=== PATIENT | male | born 1945 | race Caucasian/White ===

== ENCOUNTER 2020-10-14 00:44 | Observation (INO) | payer MEDICARE, OTHER ==
[2020-10-14 02:19] LABS: Troponin I Less than 0.010 ng/mL (< 0.028)
--- NOTE | 2020-10-14 02:25 | PDOC.BPN ---
- Brief Progress Note [id number] HP dictated
[2020-10-14] MEDS ORDERED: Azithromycin 500 MG in Sodium Chloride 0.9% 250 ML 250 ML IVPB SCH (03:00)
[2020-10-14] MEDS ORDERED: Azithromycin 500 MG VIAL ONE (03:17)
--- NOTE | 2020-10-14 05:11 | HP ---
CHIEF COMPLAINT: Shortness of breath. HISTORY OF PRESENT ILLNESS: Mr. Bond is a 74-year-old male with past medical history of COPD and seasonal allergies. He is being transferred from [facility] after he presented there with shortness of breath that occurred approximately around 6 p.m. last evening after mowing the yard. The patient reports history of COPD. He is not on any inhalers. He is currently a smoker. He denies any history of coronary artery disease or cardiac evaluations or stress test in the past. The patient also noted some retrosternal chest tightness radiating to the left arm. Denies previous history of COPD exacerbations requiring ER visits. The patient has taken a dose of baby aspirin today. No family history of heart disease. He also noted some abdominal pain earlier yesterday. He denies dysuria or urgency. Initial workup in the emergency room including EKG, no acute findings. Chest x-ray, no acute finding. Troponins mildly elevated at 0.03. The patient was given steroids, bronchodilators with some improvement. The patient has been transferred to our medical facility for continued management and to rule out acute coronary syndrome. PAST MEDICAL HISTORY: 1. Chronic obstructive pulmonary disease. 2. Benign prostatic hypertrophy. PAST SURGICAL HISTORY: Prostatectomy. SOCIAL HISTORY: He drinks about 4 beers per week. Denies alcohol use. He smokes cigarettes about a pack a day. FAMILY HISTORY: Reviewed and noncontributory. ALLERGIES: ALLERGIC TO CODEINE A DERIVATIVE. HOME MEDICATIONS: Please see home medication reconciliation for updated medications. REVIEW OF SYSTEMS: Review of 14 systems negative except what is mentioned in history of present illness. PHYSICAL EXAMINATION: GENERAL: The patient is awake, alert, does not appear to be in acute distress. VITAL SIGNS: Blood pressure 129/80, pulse is 98, respiratory rate is 21, temperature is 98.3, oxygen saturation is 96% on 3 L per minute nasal cannula. HEAD AND NECK: Normocephalic, atraumatic. NECK: Supple. No JVD. CHEST: Decreased air entry bilaterally. HEART: S1, S2. Regular. ABDOMEN: Soft, nontender. Bowel sounds present. NEUROLOGIC: Awake, alert, oriented x3. PSYCHIATRIC: Normal mood. EXTREMITIES: No clubbing, no cyanosis. GENITOURINARY: No suprapubic tenderness. No flank tenderness. SKIN: No apparent rash. LABORATORY DATA: UA positive for WBCs and bacteria. IMAGING: Chest x-ray as mentioned above in history of present illness. Labs as mentioned above in history of present illness. ASSESSMENT: 1. Acute exacerbation of chronic obstructive pulmonary disease. 2. Chest pain, rule out acute coronary syndrome. 3. Acute urinary tract infection. 4. Cigarette smoker. PLAN: 1. Admit. 2. Tele monitor. 3. Oxygen to keep saturation more than 92%. 4. Continue with DuoNebs scheduled as needed. 5. IV steroids. 6. IV antibiotic. 7. Serial troponins. 8. Aspirin. 9. Reconcile home medications. 10. DVT prophylaxis as appropriate. 11. Expected length of stay one midnight, if patient is stable and further workup negative. Job ID: [id number]
[2020-10-14 05:22] LABS: Troponin I Less than 0.010 ng/mL (< 0.028)
[2020-10-14] MEDS ORDERED: methylPREDNISolone Sod Succ 40 MG VIAL IVP SCH (06:00)
[2020-10-14] MEDS ORDERED: methylPREDNISolone Sod Succ 40 MG VIAL ONE (06:11)
[2020-10-14] MEDS ORDERED: Albuterol 200 PUFF (6.7GM INHALER) INH PRN (07:49)
[2020-10-14] MEDS ORDERED: Enoxaparin Sodium 40 MG/0.4 ML SYRINGE ONE (08:52)
[2020-10-14] MEDS ORDERED: Aspirin 325 MG TAB ONE (08:53)
[2020-10-14] MEDS ORDERED: Enoxaparin Sodium 40 MG/0.4 ML SYRINGE SC SCH (09:00)
[2020-10-14] MEDS ORDERED: Aspirin 325 mg Enteric Coated Tablet PO SCH (09:00)
[2020-10-14] MEDS ORDERED: Albuterol 200 PUFF (6.7GM INHALER) INH SCH (13:00)
--- NOTE | 2020-10-14 13:26 | PDOC.DS.DS ---
Provider - Provider Date of Admission: 10/14/20 01:32 Date of Discharge: 10/14/20 Admitting Provider: Zulma Jeffers MD Primary Care Physician: NO PCP PROVIDER Course - Hospital Course Hospital Course: Discharge diagnosis: 1. COPD exacerbation 2. Suspected urinary tract infection Hospital course: Mr. Bond is a pleasant 72-year-old gentleman who was admitted to the hospital on October 14, 2020 for COPD exacerbation. There was also suspicion of urinary tract infection based on biochemical analysis, although patient did not have any dysuria or increased frequency of urination. He improved clinically following admission. He is being discharged home on antibiotics, steroids and bronchodilators. He was maintaining good oxygen saturations on room air. Many thanks for allowing me to participate in your patient's care. Please feel free to contact me with any questions or concerns. At the time of this dictation, COVID-19 test is pending. He is advised to follow-up with his primary care provider both for the COVID-19 test result and for urine culture report. - Physical Exam Physical Exam: The patient was seen and examined on the day of discharge. Patient denies chest pain or shortness of breath. Vital signs are stable. S1 and S2 are heard. Lungs are clear to auscultation bilaterally. Plan - Discharge Medications Prescriptions: Cefdinir [Omnicef] 300 mg PO BID #20 cap predniSONE 20 mg PO ASDIR #12 tab Home Medications: Medication Instructions Recorded Confirmed Type Aspirin [Ecotrin Low Strength] 81 mg PO DAILY tab 06/19/20 Rx Atorvastatin Calcium 20 mg PO DAILY 30 Days #30 tablet 06/19/20 Rx Cefdinir [Omnicef] 300 mg PO BID #20 cap 10/14/20 Rx predniSONE 20 mg PO ASDIR #12 tab 10/14/20 Rx Allergies: codeine Allergy (Verified 06/18/20 02:28) - Discharge Instructions Discharge Instructions:: Follow-up with primary care provider for COVID-19 test result. Activity:: Activity as Tolerated Nourishment:: Heart Healthy Diet - Follow up Plan Referrals: PROVIDER,NO PCP [Primary Care Provider] - [facility] [ Not on Staff] - 3 Days Disposition: HOME
[2020-10-14 13:32] VITALS: BP 128/71; TEMP 96.9
[2020-10-14 14:17] LABS: SARS-CoV-2 MS2 Positive; SARS-CoV-2 N Gene Negative; SARS-CoV-2 S Gene Negative; SARS-CoV-2 by NAA Not Detected (NotDetected); SARS-CoV-2 orf1ab Negative
[2020-10-14] MEDS ORDERED: cefTRIAXone\\ROCEPHIN 1 GM in Sodium Chloride 0.9% 100 ML IVPB SCH (23:00)
--- NOTE | 2020-10-18 16:17 | EKG ---
Test Reason : Blood Pressure : / mmHG Vent. Rate : 095 BPM Atrial Rate : 095 BPM P-R Int : 146 ms QRS Dur : 100 ms QT Int : 380 ms P-R-T Axes : 061 017 033 degrees QTc Int : 477 ms Normal sinus rhythm Normal ECG Confirmed by TEODORO TAMAYO M.D. ([id number]), film or videotape editor ABBY CANALES ([id number]) on 10/18/2020 4:17:04 PM Referred By: Confirmed By:TEODORO TAMAYO M.D.
== END 2020-10-14 15:00 | disposition home or self-care (01) ==
LOC: ERS 00:44 → ERHOLD 01:32 → 2NO 12:40
PROVIDERS: ADMIT Internal Medicine; ATTEND Internal Medicine
DX: J44.1 Chronic obstructive pulmonary disease with (acute) exacerbation (principal); R07.89 Other chest pain; F17.210 Nicotine dependence, cigarettes, uncomplicated; N40.0 Benign prostatic hyperplasia without lower urinary tract symptoms; J30.2 Other seasonal allergic rhinitis; F41.9 Anxiety disorder, unspecified; Z79.82 Long term (current) use of aspirin; Z88.5 Allergy status to narcotic agent; Z20.828 Contact with and (suspected) exposure to other viral communicable diseases
CPT/HCPCS: 84484 ×2; 93005; 94760; 96372; 96374; 96375; 99285; G0378 ×2; U0003; 36415; 87635; J0456; J1650; J2920; J7050